=== PATIENT | male | born 1955 | race Two or more races ===

== ENCOUNTER 2024-07-08 09:30 | Day surgery (SDC) | payer OTHER, MEDICAID, SELFPAY ==
--- NOTE | 2024-07-07 06:56 | EKG_ITS ---
[facility] Test Date: 2024-07-07 Pat Name: CARRIE POWELL Department: Room: - Gender: Male Foreign Diplomat: EMILEE : 1955 Requested By: Reddy Choi Order Number: [id number] Reading MD: Reddy Choi Measurements Intervals [place] Rate: 65 P: 54 LA: 162 QRS: 53 QRSD: 84 T: 65 QT: 397 QTc: 413 Interpretive Statements SINUS RHYTHM No previous ECG available for comparison /store/S0/[id number]/ecg/[id number].pdf
[2024-07-07 10:40] VITALS: BMI 27.1
[2024-07-07 11:15] LABS: Collection Type, Urine Clean Catch
[2024-07-07 12:16] LABS: Alanine Aminotransferase 53 U/L (10-49); Albumin, Serum 5.2 gm/dL (3.4-4.8); Albumin/Globulin Ratio 2.2 (1.2-2.2); Alkaline Phosphatase 79 U/L (46-116); Anion Gap 9 (7-16); Aspartate Amino Transferase 33 U/L (0-34); BUN/Creatinine Ratio 18 Ratio (12-20); Bilirubin,Total 0.8 mg/dL (0.3-1.2); Blood Urea Nitrogen 16 mg/dL (9-23); Calcium 9.6 mg/dL (8.3-10.6); Calcium (Corrected) 9.6 mg/dL (8.5-10.1); Carbon Dioxide 26.9 mMol/L (20.0-31.0); Chloride 104 mMol/L (98-107); Creatinine (Component) 0.9 mg/dL (0.6-1.3); Estimated Creatinine Clearance 73.9 mL/min (>60); Globulin 2.4 gm/dL (2.3-3.5); Glucose 100 mg/dL (74-106); Osmolality,Calculated 280 (275-295); Potassium 4.3 mMol/L (3.4-5.1); Sodium 140 mMol/L (136-145); Total Protein 7.6 gm/dL (5.7-8.2); eGFR > 60 See Note
[2024-07-07 12:30] LABS: Basophils % (Auto) 1 % (0-2.5); Eosinophils # (Auto) 0.2 Thou/mm3 (0.0-0.5); Eosinophils % (Auto) 3 % (0-10); Hematocrit 41.3 % (41.0-53.0); Hemoglobin 14.1 g/dL (13.5-16.0); Immature Granulocytes % (Auto) 0 % (0-0); Immature Granulocytes Auto 0.02 Thou/mm3 (0.00-0.00); Lymphocytes # (Auto) 1.5 Thou/mm3 (1.0-4.8); Lymphocytes % (Auto) 25 % (10-50); Mean Corpuscular HGB Conc 34.1 g/dl (31.0-37.0); Mean Corpuscular Hemoglobin 29.9 pg (25.0-35.0); Mean Corpuscular Volume 88 fL (80-100); Monocytes # (Auto) 0.7 Thou/mm3 (0.0-0.8); Monocytes % (Auto) 11 % (0-12); Neutrophils # (Auto) 3.7 Thou/mm3 (1.8-7.7); Neutrophils % (Auto) 61 % (37-80); Nucleated Red Blood Cell % 0 /100 WBC (0); Platelet Count 212 Thou/mm3 (140-440); RDW Standard Deviation 46.1 fL (35.1-43.9); Red Blood Count 4.71 Miln/mm3 (4.50-5.90); White Blood Count 6.1 Thou/mm3 (3.8-10.6)
[2024-07-07 12:37] LABS: Bilirubin,Urine Negative (Negative); Blood,Urine Negative (Negative); Clarity,Urine Clear (Clear/Hazy); Color,Urine Yellow (Lt Yel-Yel); Glucose, Urine Negative (Negative); Ketones,Urine Negative (Negative); Leukocyte Esterase,Urine Negative (Negative); Nitrite,Urine Negative (Negative); PH,Urine 5.5 (5.0-7.0); Protein,Urine Negative (Neg - Trace); RBC,Urine 1 /hpf (0-3); Specific Gravity,Urine 1.027 (1.001-1.035); Squamous Epithelial Cell,Urine < 1 /hpf (0-5); Urobilinogen,Urine Negative mg/dL (0.0-1.0); WBC,Urine 1 /hpf (0-5)
--- NOTE | 2024-07-07 16:37 | ESHP_ITS ---
RE: CARRIE POWELL : 1955 DATE OF ADMISSION: 07/08/2024 HISTORY OF PRESENT ILLNESS: The patient is a 68-year-old gentleman who was referred to me with history of elevated PSA of 11.8. He is a Canadian-speaking kishor, nocturia x3, slow urinary stream, some burning in the urine. PAST SURGICAL HISTORY: Colonoscopy and hemorrhoidectomy. He had a surgery on his disc in the back. SOCIAL HISTORY: The patient has 5 children. PAST MEDICAL HISTORY: He has a history of diabetes mellitus and history of high blood pressure. HOME MEDICATIONS: He takes; 1. Metformin. 2. Hydrochlorothiazide. 3. Statin medication. 4. Some other medicine for his diabetes. ALLERGIES: NONE KNOWN. PHYSICAL EXAMINATION: HEENT: Normal. NECK: Supple. LUNGS: Clear. CARDIOVASCULAR: Heart sounds are normal. ABDOMEN: Soft without any organomegaly. No guarding. No rigidity. EXTREMITIES: Normal. GENITOURINARY: Phallus is normal. Testes are down in scrotum. RECTAL: Moderately enlarged smooth prostate without any nodules. IMPRESSION: 1. Prostatism. 2. Prostatic obstruction. 3. Elevated PSA of 11.8. PLAN: Cystoscopy, transrectal prostatic ultrasound with ultrasound-guided prostatic needle biopsy. Planned procedure, risks and complications have been discussed with the patient. The patient has understood them and agreed to proceed. DT: 16::20 TT: 16:35:00 Ref: [id number] - TID: [id number]
[2024-07-08] VITALS (7 sets, daily range): BP systolic 102–146; BP diastolic 68–83; PULSE 63–74; RESP 12–20; TEMP 36.2–36.7; O2SAT 94–96; BMI 27.6
--- NOTE | 2024-07-08 13:10 | SUR.PHASEII ---
pt received from OR in recovery bay 6. pt asleep but responds to voice, breathing unlabored on room air. v/s stable. report received from Elie MATHEW and Dr. Larkin.
--- NOTE | 2024-07-08 13:50 | SUR.PHASEII ---
pt able to tolerate oral fluids without difficulty swallowing or nausea/vomiting.
--- NOTE | 2024-07-08 14:00 | SUR.PHASEII ---
pt awake and alert, breathing unlabored on room air. v/s stable. pt able to ambulate to wheelchair with steady gait. d/c instructions given with Erin in room using comb winder Kirstin Potts, all questions answered. pt d/c via wheelchair with all belongings.
--- NOTE | 2024-07-08 18:07 | ESOP_ITS ---
RE: CARRIE POWELL : 1955 DATE OF OPERATION: 07/08/2024 PREOPERATIVE DIAGNOSES: Prostatic obstruction, prostatism, and elevated PSA of 11.8. POSTOPERATIVE DIAGNOSES: Prostatic obstruction, prostatism, and elevated PSA of 11.8. PROCEDURES PERFORMED: Cystoscopy, urethral dilatation, and transrectal prostatic ultrasound with ultrasound-guided prostatic needle biopsy. ANESTHESIA: Monitored anesthesia by Dr. Larkin. INDICATION: The patient is a 68-year-old male with elevated PSA of 11.8. He has nocturia x3. Rectally, he has a moderately sized prostate without any hard nodules. He is now scheduled to have cystoscopy, urethral dilatation, and transrectal prostatic ultrasound with ultrasound-guided prostatic needle biopsy. Planned procedure, risks, and complications have been discussed with the patient. The patient understood them and agreed to proceed. DESCRIPTION OF PROCEDURE: After the patient was brought to the operating table under adequate monitored anesthesia in dorsal lithotomy position, parts were prepped and draped in the usual fashion. Cystoscopy was carried out, which revealed adequate urethral meatus and normal-appearing urethra. Prostate revealed a bilobed moderately enlarged prostate. Residual urine 4 ounces, yellow and clear and was sent for culture and sensitivity examination. There are no intravesical stones or tumors. Ureteral orifices are found to be normal in position and appearance. Ureteral orifices are normal. Scope was withdrawn. Urethra was dilated. The patient was then turned in left lateral position. Transrectal prostatic ultrasound was carried out. Biopsies were obtained from both lobes. Using ultrasound guidance, prostatic volume was measured at 36.2 cm3. The patient tolerated the entire procedure well and left the room in good condition. In all, about 10 biopsies were obtained from the prostate from both lobes. DT: 13:37:40 TT: 18:06:00 Ref: [id number] - TID: [id number]
== END 2024-07-08 14:00 | disposition home or self-care (01) ==
PROVIDERS: Anesthesiology; PCP Family Medicine; Referring Provider Surgery; Visit Provider Surgery
PROC: (CPT 55700; principal; 2024-07-08 12:30)
DX: C61 Malignant neoplasm of prostate (principal); N40.1 Benign prostatic hyperplasia with lower urinary tract symptoms; E11.9 Type 2 diabetes mellitus without complications; I10 Essential (primary) hypertension; R97.20 Elevated prostate specific antigen [PSA]; Z01.810 Encounter for preprocedural cardiovascular examination
CPT/HCPCS: 52281; 55700; 36415; 76942; 80053; 81001; 85025; 87086; 93005; A4217; A4649; J0694; J2250; J2704; J2795; J3010

== ENCOUNTER → 2024-07-28 | Outpatient (CLI) | payer OTHER, MEDICAID, SELFPAY ==
--- NOTE | 2024-07-28 16:38 | XR_ITS ---
Examination: CT pelvis without intravenous contrast. 2-D sagittal and coronal reconstructions. Date and time of exam:July 28, 2024 1649 hours INDICATIONS: Diagnosis malignant neoplasm prostate this month, staging CTDI: vol (mGy) :6.68 DLP: (mGycm) : 231 Technique: Multiple 3 mm axial sections of the pelvis have been obtained with the 64 slice high resolution scanner. 2-D sagittal and coronal reconstructions. Low dose protocols were performed. One or more of the following dose reduction techniques were used; automated exposure control, adjustment of the mA and/or KV according to patient size, use of iterative reconstruction technique. Findings: No asymmetric enlargement of the seminal vesicles AP prostate dimension 4.3 cm Minimal thickening of the urinary bladder wall up to 3 mm 6 mm left external iliac lymph node image 52 Colonic diverticulosis No osteoblastic metastatic disease IMPRESSION: 6 mm left external iliac lymph node, image 52, consider PET CT scan follow-up Negative for osteoblastic metastatic disease
== END | disposition home or self-care (01) ==
LOC: CCTX 15:52
PROVIDERS: PCP Family Medicine; Referring Provider Surgery; Visit Provider Surgery
DX: C61 Malignant neoplasm of prostate (principal)
CPT/HCPCS: 72192

== ENCOUNTER → 2024-08-04 | Outpatient (CLI) | payer OTHER, MEDICAID, SELFPAY ==
--- NOTE | 2024-08-04 13:00 | XR_ITS ---
Examination: Bone scan whole body, radioisotope Date and time of exam: 04/06/2024 1320 hours INDICATIONS: Diagnosis prostate cancer 4 weeks ago Technique: Study has been performed with intravenous administration of 25 mci 99M technetium MDP. Anterior, posterior whole body images are obtained. Images have been obtained including the lower extremities. Findings: Symmetrical isotope accumulation IMPRESSION: No findings diagnostic for osseous metastatic disease
== END | disposition home or self-care (01) ==
PROVIDERS: PCP Family Medicine; Referring Provider Surgery; Visit Provider Surgery
DX: C61 Malignant neoplasm of prostate (principal)
CPT/HCPCS: 78306; A9503

== ENCOUNTER 2024-08-26 09:49 | Outpatient (RCR) | payer OTHER, MEDICAID, SELFPAY ==
--- NOTE | 2024-08-26 13:14 | CTCCONSULT_ITS ---
[facility] [address] [place], [place] [address] Consultation Note Date: 08/26/2024 MR#: [id number] Name: CARRIE POWELL : 1955 Dx: C61 prostate cancer Referring physician. Devin Choi MD Reason for consultation. Patient with CA of the prostate group 4 grade 8 (3+5) referred to the cancer treatment center. History of Present Illness: 68-year-old gentleman with prostatism nocturia had PSA of 11.8 and underwent biopsy of the prostate 07/08/2024. This revealed group 4 [place]'s grade 8 (3+5) in right lobe and left lobe benign tissue. Had CT scan 07/28/2024 showing 5 mm left external iliac lymph node and negative for osteoblastic mets disease. Bone scan 08/03/2024 showed no diagnostic pattern of osseous mets disease. Patient now referred for radiation oncology consultation. Past Medical History: Hypothyroidism prostatism diabetes Meds. Levothyroxine atorvastatin Pioglitazone Allergies none to meds Social History: Patient retired Lithuanian-speaking lives in [place] Family history. 1 sister had breast cancer 1 brother had leukemia Review of Systems: Prostatism symptoms Physical Exam: General: Adequately nourished gentleman in no acute distress HEENT: Atraumatic normocephalic extraocular was intact no oral lesions no cervical or supraclavicular adenopathy CV: Chest good station heart regular rate and rhythm ABD: Soft no organomegaly tenderness EXT: No signs of clubbing or edema Assessment:1, Patient with CA prostate PSA 11.8 Ruchi's group 4 grade 8 CA the prostate. 2. PET scan to complete staging. 3. Various treatment options discussed with family. I will see patient after the PET scan regarding patient's choice. 3. Thank you very much for allowing me to evaluate this patient Cc: Devin Choi MD Electronically signed by: Trav Muller MD, DABR 08/26/2024 1:12 PM
== END 2024-09-18 23:59 | disposition home or self-care (01) ==
LOC: SCTC 09:49
PROVIDERS: PCP Family Medicine; Referring Provider Surgery; Visit Provider Radiology Therapeutic Radiology
DX: C61 Malignant neoplasm of prostate (principal)
CPT/HCPCS: 99213; G0463

== ENCOUNTER → 2024-09-18 | Outpatient (CLI) | payer OTHER, MEDICAID, SELFPAY ==
--- NOTE | 2024-09-18 10:15 | XR_ITS ---
EXAMINATION: PET/CT FUSION SKULL TO THIGH EXAM DATE AND TIME: September 18, 2024 1103 hours Comparison nuclear medicine bone scan August 04, 2024 CT pelvis July 28, 2024 INDICATIONS: Diagnosis malignant neoplasm prostate July 2024, staging, 6 mm left external iliac lymph node on CT pelvis July 28, 2024 CTDI:vol (mGy) 6.26 DLP: (mGycm) 649.24 PROCEDURE: 17.2 mCi FDG was administered intravenously To allow for distribution and uptake of radiotracer, the patient was allowed to rest quietly in a shielded room. Imaging was performed on an integrated 16-slice PET/CT scanner, with scanning from the skull base to the mid thigh. Serum blood glucose at the time of the injection was measured 98 mg/dL. CT scanning was performed without oral or intravenous contrast material. FINDINGS: Head and Neck: There is no clem hypermetabolism in the neck. The visualized portions of the brain are normal in appearance on CT. Chest: There is no clem hypermetabolism in the chest. There are no pulmonary nodules. Abdomen and Pelvis: 6 mm left external iliac lymph node which is not hypermetabolic Musculoskeletal: Marrow uptake is within normal range. IMPRESSION: 6 mm left external iliac lymph node which is not hypermetabolic
== END | disposition home or self-care (01) ==
LOC: CDIM 09:51
PROVIDERS: PCP Family Medicine; Referring Provider Radiology Therapeutic Radiology; Visit Provider Radiology Therapeutic Radiology
DX: C61 Malignant neoplasm of prostate (principal)
CPT/HCPCS: 78815; A9552

== ENCOUNTER 2024-09-25 09:16 | Outpatient (RCR) | payer OTHER, MEDICAID, SELFPAY ==
--- NOTE | 2024-09-25 10:13 | CTCFLWUP_ITS ---
[facility] [address] [place], [place] [address] FOLLOW-UP NOTE Date: 09/25/2024 MR#: [id number] Name: CARRIE POWELL : 1955 Dx: C61 Malignant neoplasm of prostate Identification. Patient with PSA 11.8 Ruchi grade 8 (3+5) group 4 CA of the prostate right lobe with left lobe benign tissue. CT scan 07/28/2024 showed 5 mm left external iliac lymph node and negative for osteoblastic mets disease. Bone scan 10/03/2024 showed no pattern of osseous mets disease. PET scan 09/18/2024 revealed 6 mm left external iliac lymph node which was not hypermetabolic. Patient does appear to have high risk prostate cancer but no distant mets. He is interested in at least having a consultation regarding surgery. Schedule patient for [place] which appears to be in his insurance panel. Gave patient follow-up for 2 months. Cc: Devin Choi MD Electronically signed by: Trav Muller M.D. 09/25/2024 10:10 AM
== END 2024-10-19 23:59 | disposition home or self-care (01) ==
LOC: SCTC 09:16
PROVIDERS: PCP Family Medicine; Referring Provider Family Medicine; Visit Provider Radiology Therapeutic Radiology
DX: C61 Malignant neoplasm of prostate (principal)
CPT/HCPCS: 99213; G0463

== ENCOUNTER 2024-12-11 14:10 | Outpatient (RCR) | payer OTHER, MEDICAID, SELFPAY ==
--- NOTE | 2024-11-19 13:57 | CTCFLWUP_ITS ---
[facility] [address] [place], [place] [address] FOLLOW-UP NOTE Date: 11/19/2024 MR#: [id number] Name: CARRIE POWELL : 1955 Dx: C61 Malignant neoplasm of prostate Patient had consultation at [facility] [facility] which reportedly told him to go ahead with surgery. Spoke to patient about initiating patient with Casodex and Lupron followed by external beam radiation lasting about 7 to 8 weeks. Side effects explained. Electronically signed by: Trav Muller M.D. 11/19/2024 1:55 PM
--- NOTE | 2024-11-19 14:01 | CTCTXPLN_ITS ---
[facility] [address] [place], [place] [address] Physician Clinical Treatment Planning Note Date of Service: 11/19/2024 Name: CARRIE POWELL D.O.B.: 1955 The patient has agreed to proceed with Radiation therapy. Tests and supporting medical records were interpreted to assist in defining the tumor location and extent of disease. Further imaging will be necessary to contour and delineate the volume to which the XRT will be provided. A. Treatment Intent: Curative B. Modality: 10 MV C. Requested Technique: VMAT D. Treatment Site: Pelvis E. Critical structures t pelvic o be contoured on plan: F. In order to accomplish this plan, I am ordering/Prescribing the followin. Simulations (s) will be performed to accomplish a reproducible treatment position, to determine optimal treatment portals/beam arrangements, to design beam modifying devices and verify treatment portals on patient prior to the commencement of Radiation Therapy. 2. Devices; for immobilization and beam shapin. CT Guidance for placement of XRT prater Scan area: 4. Portal images Frequency: 5. Invivo transit dose measurement once per week on all VMAT patients. 6. Special Physics Consult Requested for: 7. Other requests: Curative G. Dose Objectives: Electronically signed by: Trav Muller M.D. 11/19/2024 1:58 PM
== END 2024-12-19 23:59 | disposition home or self-care (01) ==
LOC: SCTC 14:10
PROVIDERS: PCP Family Medicine; Referring Provider Family Medicine; Visit Provider Radiology Therapeutic Radiology
DX: Z51.11 Encounter for antineoplastic chemotherapy (principal); C61 Malignant neoplasm of prostate
CPT/HCPCS: 96402; 99213; J9217; G0463